=== PATIENT | female | born 1970 | race African-American/Black ===

== ENCOUNTER 2017-10-05 19:48 | Emergency (ER) | payer MEDICAID ==
[~2017-10-05] VITALS: Ht 170.2 cm; Wt 78.0 kg
[2017-10-05 19:56] VITALS: Ht 170.2 cm; Wt 78.0 kg
[2017-10-05 21:35] VITALS: BP 125/76
== END 2017-10-05 21:35 | disposition home or self-care (01) ==
LOC: ED 19:48
DX: S69.91XA Unspecified injury of right wrist, hand and finger(s), initial encounter (principal); R03.0 Elevated blood-pressure reading, without diagnosis of hypertension; W22.8XXA Striking against or struck by other objects, initial encounter; Y93.89 Activity, other specified; Y92.89 Other specified places as the place of occurrence of the external cause; Y99.8 Other external cause status
CPT/HCPCS: 90715; Q0092